=== PATIENT | male | born 1965 | race Caucasian/White ===

== ENCOUNTER 2018-05-08 07:11 | Outpatient (CLI) | payer BC ==
--- NOTE | 2018-05-08 08:42 | ULT ---
HEPATIC AND HEPATIC ARTERY ULTRASOUND: Date: 05/08/18 HISTORY: Abnormal LFTs. TECHNIQUE: Multiplanar Smith scale and color Doppler images were obtained in a right upper quadrant abdominal ult rasound. Spectral analysis of the Doppler waveforms of the hepatic and splenic vasculature were perfo rmed. FINDINGS: The liver is normal in echogenicity without focal lesions or intrahepatic ductal dilatation. The gall bladder is contracted and contains shadowing stones. The patient recently ate and did not know he was supposed to be [employer]> Normal directional flow was seen in the hepatic and splenic vasculature, which also demonstrated norm al waveforms. The common bile duct is normal in caliber, measuring 4.0 mm. The visualized portions of the pancreas are unremarkable. The spleen is normal in echogenicity without focal lesions, but is enlarged measuri ng 14.6 cm in length. IMPRESSION: 1. Cholelithiasis. 2. Splenomegaly. POS: [facility]
== END 2018-05-08 07:12 | disposition home or self-care (01) ==
LOC: BICULT 07:11
PROVIDERS: ATTEND Physician Assistant Medical
DX: K50.90 Crohn's disease, unspecified, without complications (principal); R94.5 Abnormal results of liver function studies; K80.20 Calculus of gallbladder without cholecystitis without obstruction; R16.1 Splenomegaly, not elsewhere classified
CPT/HCPCS: 76705

== ENCOUNTER 2020-01-21 08:42 | Outpatient (CLI) | payer BC ==
--- NOTE | 2020-01-21 11:05 | CT ---
CT ABDOMEN AND PELVIS WITH IV CONTRAST 01/21/2020 CLINICAL INFORMATION: Microhematuria. Recent diagnosis of prostate cancer. COMPARISON: 07/18/2013 Technique: Multiple contiguous axial CT images are obtained through the abdomen and pelvis with IV contrast. Cor onal reformatted images are provided. FINDINGS: Lower Chest: Mild linear scar versus atelectasis is present at the right lung base. No pulmonary nodu le is seen in either lung base. Vessels: Abdominal aorta is normal in caliber. Abdomen: Portal vein:Patent Gallbladder: Multiple gallbladder calculi are again seen in the gallbladder lumen. Gallbladder is not distended. Liver: At the upper limits normal in size. A 1.1 cm too small to characterize hypodense lesion is see n within the liver adjacent to the gallbladder. Spleen: within normal limits. Pancreas: within normal limits. Adrenals: within normal limits. Kidneys: A 1.2 cm fluid attenuation cyst is seen in the inferior pole right kidney. No enhancing sathish l mass or hydronephrosis is seen bilaterally. Few tiny subcentimeter too small to characterize appearance lesions are seen in the midportion of each kidney. Bowel: Normal caliber. Appendix: The appendix is visualized and normal in caliber. Peritoneum/retroperitoneum: There is mild nonspecific haziness and stranding seen in the central mese ntery which was seen on the study in 2013 but does appear slightly more prominent on this exam. No enlarged lymph nodes are seen in this region. 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 Abdominal Wall: within normal limits. Pelvis: Reproductive Organs: Prostate gland is not visualized on patient's reported history of prior prostate ctomy. In the expected location of the prostate posterior to the posterior inferior wall urinary bladder is a 3.3 cm hypodense fluid collection with what may represent a associated thin septation wi thin the cystic structure versus 2 closely adjacent cystic structures. Prior CT pelvis on 10/24/2013 demonstrated large hypodense cystic structures along the iliac chains and lateral phillip of the pelvis which have resolved collection posterior to the base urinary bladder was not seen. This could potentially represent a seroma in this region; however, continued follow-up is suggested. No enlarged lymph nodes are seen in the pelvis adjacent to this region. Bladder: Partially distended and normal in appearance. Bones: A 1.3 cm sclerotic lesion is seen in the left iliac bone at the level of the left sacroiliac j oint. This was not present on prior studies in 2014, and this could be related to solitary metastatic lesion. This does not demonstrate interdigitated margins which would be seen with a typica l bone island. Further evaluation with bone scan is recommended. No additional suspicious lytic or sclerotic lesions are seen. IMPRESSION: 1. Sclerotic lesion in the left iliac bone which was not present on studies in 2014. This does not de monstrate characteristics compatible with a bone island and may represent a solitary osseous sclerotic metastatic lesion. Further evaluation with bone scan is recommended. 2. Cystic structure in the region of the prostate bed posterior to the urinary bladder measuring 3.3 cm. This was not present on studies in 2014, and the previously noted collections along the pelvic sidewalls bilaterally on CT pelvis on 10/24/2013 have resolved. Collection posterior to the urinary rolando dder is nonspecific; no adjacent inflammatory changes are seen. Findings could potentially represent a small seroma in this region. However, follow-up evaluation is recommended. 3. Cholelithiasis. 4. Mild haziness involving the central mesentery which is overall a nonspecific finding. The degree o f haziness does appear increased from study in 2013. This could potentially be related to mesenteric panniculitis. 5. Too small to characterize hypodense lesion in the liver adjacent to the gallbladder. 6. Cholelithiasis.
--- NOTE | 2020-01-21 12:53 | NM ---
Exam: Nuclear medicine whole body bone scan HISTORY: Prostate cancer. Rising PSA. Restaging. COMPARISON: 07/18/2013. TECHNIQUE: Patient was administered 29 mCi of technetium 99 MDP intravenously. Whole body delayed jean-paul ging is performed. FINDINGS: Homogeneous distribution of the radiotracer. Persistent uptake in the maxilla, mandible and shoulders . No scintigraphic evidence of osseous metastases. Urine contamination overlies the pelvis. Mild degenerative changes in the knees, feet and ankle. IMPRESSION: No scintigraphic evidence of osseous metastases. Transcribed Date/Time: 01/21/2020 2:12 PM
[2020-01-21] MEDS ORDERED: Iopamidol-370 76% 500 ML 1 ML ONE (13:41)
[2020-01-21] MEDS ORDERED: Iopamidol 370 76% 50 ML VIAL FS ONE (13:41)
== END 2020-01-21 08:43 | disposition home or self-care (01) ==
LOC: CT 08:42
PROVIDERS: ATTEND Radiology Radiation Oncology
DX: C61 Malignant neoplasm of prostate (principal); M89.8X8 Other specified disorders of bone, other site; N32.89 Other specified disorders of bladder; K80.20 Calculus of gallbladder without cholecystitis without obstruction; K76.9 Liver disease, unspecified
CPT/HCPCS: 74177; 78306; A9503; Q9967

== ENCOUNTER 2021-07-30 12:42 | Day surgery (SDC) | payer BC ==
[~2021-07-30 12:42] MED LIST: Acetaminophen 500 MG TAB PO SCH; INFLIXIMAB IVPB SCH; SODIUM CHLORIDE 0.9% IVPB SCH; diphenhydrAMINE 25 MG CAP PO SCH
[2021-07-30 13:12] VITALS: BP 147/76; TEMP 98.5
== END 2021-07-30 15:47 | disposition home or self-care (01) ==
LOC: ONC/OP 12:42
PROVIDERS: ATTEND Internal Medicine
DX: K50.90 Crohn's disease, unspecified, without complications (principal)
CPT/HCPCS: 96413; 96415; J1745; J7050

== ENCOUNTER 2023-09-07 16:08 | Outpatient (CLI) | payer BC | END 2023-09-07 16:09 | disposition home or self-care (01) | LOC: BICRAD 16:08 | PROVIDERS: ATTEND Physician Assistant Medical | DX: K59.00 Constipation, unspecified (principal) | CPT/HCPCS: 74019 ==